=== PATIENT | female | born 1980 | race Caucasian/White ===

== ENCOUNTER 2018-03-17 13:07 | Inpatient (IN) | payer BC, OTHER ==
[~2018-03-17] VITALS: Ht 162.6 cm; Wt 105.2 kg
[2018-03-17 13:52] LABS: BASOPHILS # (AUTO) 0.03 x10^3/uL (0-0.1); BASOPHILS % (AUTO) 1 % (0-1); EOSINOPHILS # (AUTO) 0.16 x10^3/uL (0-0.4); EOSINOPHILS % (AUTO) 3 % (1-7); LYMPHOCYTES # (AUTO) 1.96 x10^3/uL (1-3.4); LYMPHOCYTES % (AUTO) 32 % (22-44); MD NO; MEAN CORPUSCULAR HEMOGLOBIN 33.5 pg (27.0-34.8); MEAN CORPUSCULAR HGB CONC 34.6 g/dL (32.4-35.8); MEAN CORPUSCULAR VOLUME 97.1 fL (80-100); MEAN PLATELET VOLUME 6.8 fL (7.4-10.4); MONOCYTES # (AUTO) 0.48 x10^3/uL (0.2-0.8); MONOCYTES % (AUTO) 8 % (2-9); NEUTROPHILS # (AUTO) 3.44 x10^3/uL (1.8-6.8); NEUTROPHILS % (AUTO) 57 % (42-75); PLATELET COUNT 318 x10^3/uL (130-400); RED BLOOD COUNT 4.18 x10^6/uL (3.82-5.3); RED CELL DISTRIBUTION WIDTH 12.3 % (9.6-15.2)
[2018-03-17 13:58] LABS: ALANINE AMINOTRANSFERASE 36 U/L (12-78); ALBUMIN 4.2 g/dL (3.4-5.0); ANION GAP 8 mmol/L (5-15); CALCIUM 8.5 mg/dL (8.5-10.1); CHLORIDE 106 mmol/L (98-107); CREATININE 0.97 mg/dL (0.55-1.02)
[2018-03-17] MEDS ORDERED: SODIUM CHLORIDE FLUSH 10ML SYR IVF ONE (14:00)
[2018-03-17] MEDS ORDERED: PROMETHAZINE 25 MG/ML, 1ML IM ONE (14:00)
[2018-03-17] MEDS ORDERED: SODIUM CHLORIDE 0.9% 1,000ML IVBOLUS ONE (14:00)
[2018-03-17] MEDS ORDERED: KETOROLAC 30 MG/1 ML IVPush ONE (14:00)
[2018-03-17] MEDS ORDERED: PROMETHAZINE 25 MG/ML, 1ML ONE (14:01)
[2018-03-17] MEDS ORDERED: KETOROLAC 30 MG/1 ML ONE (14:01)
[2018-03-17 14:02] LABS: ALKALINE PHOSPHATASE 51 U/L (45-117); BILIRUBIN,TOTAL 0.5 mg/dL (0.2-1.0); TOTAL PROTEIN 8.1 g/dL (6.4-8.2)
[2018-03-17] MEDS ORDERED: MORPHINE SULFATE 4 MG/ML, 1ML ONE ×2 (14:02→15:50)
[2018-03-17] MEDS: MORPHINE SULFATE 4 MG/ML, 1ML IVPush PRN ×2 (14:06→16:01)
[2018-03-17] MEDS ORDERED: PANTOPRAZOLE 40 MG IV ONE (15:50)
[2018-03-17] MEDS ORDERED: PANTOPRAZOLE 40 MG IV IVPush SCH (16:00)
[2018-03-17] MEDS ORDERED: OMNIPAQUE 350 MG/ML, 100ML BOTTLE ONE (16:33)
[2018-03-17 16:38] LABS: CULTURE INDICATED? YES; MICROSCOPIC INDICATED
[2018-03-17] MEDS ORDERED: ZOLP10TA PO (17:39)
[2018-03-17] MEDS ORDERED: LEVO125T5 PO (17:39)
[2018-03-17] MEDS ORDERED: BISACODYL 10 MG SUPP PR PRN (18:30)
[2018-03-17] MEDS ORDERED: ONDANSETRON 2MG/ML, 2ML IVPush PRN (18:30)
[2018-03-17] MEDS ORDERED: POLYETHYLENE GLYCOL 17 GM PACKET PO PRN (18:30)
[2018-03-17] MEDS: CEFTRIAXONE 1,000 MG in SODIUM CHLORIDE 0.9% 50 ML IV SCH (20:29)
[2018-03-17 20:38] VITALS: BP 132/91
[2018-03-17] MEDS: ZOLPIDEM 10MG TABLET PO PRN (21:12)
[2018-03-18 00:09] VITALS: BP 116/78
[2018-03-18 04:02] VITALS: BP 112/67
[2018-03-18 05:03] LABS: BASOPHILS # (AUTO) 0.05 x10^3/uL (0-0.1); BASOPHILS % (AUTO) 1 % (0-1); EOSINOPHILS # (AUTO) 0.21 x10^3/uL (0-0.4); EOSINOPHILS % (AUTO) 3 % (1-7); LYMPHOCYTES # (AUTO) 2.33 x10^3/uL (1-3.4); LYMPHOCYTES % (AUTO) 34 % (22-44); MD NO; MEAN CORPUSCULAR HEMOGLOBIN 33.8 pg (27.0-34.8); MEAN CORPUSCULAR HGB CONC 34.7 g/dL (32.4-35.8); MEAN CORPUSCULAR VOLUME 97.4 fL (80-100); MEAN PLATELET VOLUME 6.6 fL (7.4-10.4); MONOCYTES # (AUTO) 0.64 x10^3/uL (0.2-0.8); MONOCYTES % (AUTO) 9 % (2-9); NEUTROPHILS # (AUTO) 3.67 x10^3/uL (1.8-6.8); NEUTROPHILS % (AUTO) 53 % (42-75); PLATELET COUNT 294 x10^3/uL (130-400); RED BLOOD COUNT 3.95 x10^6/uL (3.82-5.3); RED CELL DISTRIBUTION WIDTH 13.1 % (9.6-15.2)
[2018-03-18 05:13] LABS: ALBUMIN 3.8 g/dL (3.4-5.0); ANION GAP 7 mmol/L (5-15); CALCIUM 8.8 mg/dL (8.5-10.1); CHLORIDE 107 mmol/L (98-107)
[2018-03-18 05:17] LABS: ALANINE AMINOTRANSFERASE 32 U/L (12-78); ALKALINE PHOSPHATASE 47 U/L (45-117); BILIRUBIN,TOTAL 0.6 mg/dL (0.2-1.0); CREATININE 1.16 mg/dL (0.55-1.02); TOTAL PROTEIN 7.1 g/dL (6.4-8.2)
[2018-03-18 07:21] VITALS: BP 112/77
[2018-03-18] MEDS: SENNA/DOCUSATE TABLET PO SCH (08:12)
[2018-03-18] MEDS: LEVOTHYROXINE 125 MCG TABLET PO SCH (08:13)
[2018-03-18] MEDS: ACETAMINOPHEN 325 MG TABLET PO PRN (09:57)
[2018-03-18 12:31] VITALS: BP 116/81
[2018-03-18] MEDS ORDERED: MAALOX/HYOSCYAMINE/LIDOCAINE 45 ML BTL PO ONE (13:00)
[2018-03-18] MEDS ORDERED: MAALOX/HYOSCYAMINE/LIDOCAINE 45 ML BTL PO PRN (13:00)
[2018-03-18] MEDS: PANTOPRAZOLE 40 MG IV IVPush SCH (14:02)
[2018-03-18] MEDS: SODIUM CHLORIDE 0.9% 1,000 ML IV SCH (14:02)
[2018-03-18] MEDS: HYDROcodone/APAP 5/325 TABLET PO PRN ×2 (14:59→22:11)
[2018-03-18] MEDS: CEFTRIAXONE 1,000 MG in SODIUM CHLORIDE 0.9% 50 ML IV SCH (18:38)
[2018-03-18 20:00] VITALS: BP 113/78
[2018-03-18] MEDS: ZOLPIDEM 10MG TABLET PO PRN (22:11)
[2018-03-19] MEDS: PANTOPRAZOLE 40 MG IV IVPush SCH ×3 (00:27→21:38)
[2018-03-19 02:00] VITALS: BP 127/82
[2018-03-19] MEDS: HYDROcodone/APAP 5/325 TABLET PO PRN ×4 (04:02→21:37)
[2018-03-19] MEDS: SODIUM CHLORIDE 0.9% 1,000 ML IV SCH ×3 (04:03→23:43)
[2018-03-19 05:55] LABS: BASOPHILS # (AUTO) 0.04 x10^3/uL (0-0.1); BASOPHILS % (AUTO) 1 % (0-1); EOSINOPHILS # (AUTO) 0.16 x10^3/uL (0-0.4); EOSINOPHILS % (AUTO) 3 % (1-7); LYMPHOCYTES # (AUTO) 2.27 x10^3/uL (1-3.4); LYMPHOCYTES % (AUTO) 41 % (22-44); MD NO; MEAN CORPUSCULAR HEMOGLOBIN 33.4 pg (27.0-34.8); MEAN CORPUSCULAR HGB CONC 34.6 g/dL (32.4-35.8); MEAN CORPUSCULAR VOLUME 96.5 fL (80-100); MEAN PLATELET VOLUME 6.6 fL (7.4-10.4); MONOCYTES # (AUTO) 0.51 x10^3/uL (0.2-0.8); MONOCYTES % (AUTO) 9 % (2-9); NEUTROPHILS # (AUTO) 2.51 x10^3/uL (1.8-6.8); NEUTROPHILS % (AUTO) 46 % (42-75); PLATELET COUNT 313 x10^3/uL (130-400); RED CELL DISTRIBUTION WIDTH 12.6 % (9.6-15.2)
[2018-03-19 06:08] LABS: CHLORIDE 107 mmol/L (98-107)
[2018-03-19 06:17] LABS: ALANINE AMINOTRANSFERASE 32 U/L (12-78); ALBUMIN 3.8 g/dL (3.4-5.0); ALKALINE PHOSPHATASE 46 U/L (45-117); ANION GAP 10 mmol/L (5-15); BILIRUBIN,TOTAL 0.5 mg/dL (0.2-1.0); CALCIUM 8.7 mg/dL (8.5-10.1); CREATININE 0.98 mg/dL (0.55-1.02); TOTAL PROTEIN 7.2 g/dL (6.4-8.2)
[2018-03-19 08:18] VITALS: BP 119/75
[2018-03-19] MEDS: SENNA/DOCUSATE TABLET PO SCH (09:29)
[2018-03-19] MEDS: LEVOTHYROXINE 125 MCG TABLET PO SCH (09:29)
[2018-03-19 13:02] VITALS: BP 132/88
[2018-03-19 15:36] LABS: OCCULT BLOOD NEGATIVE (NEGATIVE)
[2018-03-19] MEDS ORDERED: MORPHINE SULFATE 4 MG/ML, 1ML IVPush ONE (17:30)
[2018-03-19] MEDS: CEFTRIAXONE 1,000 MG in SODIUM CHLORIDE 0.9% 50 ML IV SCH (17:33)
[2018-03-19 20:04] VITALS: BP 126/42
[2018-03-19] MEDS: ZOLPIDEM 10MG TABLET PO PRN (21:38)
[2018-03-20 02:27] VITALS: BP 132/52
[2018-03-20 08:30] VITALS: BP 104/69
[2018-03-20] MEDS: SENNA/DOCUSATE TABLET PO SCH (09:00)
[2018-03-20] MEDS: LEVOTHYROXINE 100 MCG INJ IVPush SCH (09:43)
[2018-03-20] MEDS: PANTOPRAZOLE 40 MG IV IVPush SCH ×2 (09:43→21:46)
[2018-03-20] MEDS: SODIUM CHLORIDE 0.9% 1,000 ML IV SCH ×2 (09:43→21:45)
[2018-03-20] MEDS ORDERED: PROPOFOL 10 MG/ML, 20ML ONE (11:11)
[2018-03-20] MEDS ORDERED: OXYcodone 5 MG/5 ML ORAL.SOL UDC ONE ×2 (11:35→11:40)
[2018-03-20] MEDS ORDERED: FENTANYL PF 100 MCG/2ML ONE (11:35)
[2018-03-20] MEDS ORDERED: ACETAMINOPHEN 650 MG/20.3 ML UDC ONE (11:35)
[2018-03-20] MEDS: ACETAMINOPHEN 325 MG TABLET PO PRN (11:43)
[2018-03-20] MEDS ORDERED: FENTANYL PF 100 MCG/2ML IV PRN (12:00)
[2018-03-20] MEDS ORDERED: OXYcodone 5 MG/5 ML ORAL.SOL UDC PO PRN (12:00)
[2018-03-20] MEDS ORDERED: hydrALAzine 20 MG/ML, 1ML IV PRN (12:00)
[2018-03-20] MEDS ORDERED: ACETAMINOPHEN 325 MG TABLET PO PRN (12:00)
[2018-03-20] MEDS ORDERED: ONDANSETRON 2MG/ML, 2ML IV PRN (12:00)
[2018-03-20] MEDS ORDERED: LABETALOL 5MG/ML, 20ML IV PRN (12:00)
[2018-03-20 14:30] VITALS: BP 118/86
[2018-03-20] MEDS: HYDROcodone/APAP 5/325 TABLET PO PRN (18:06)
[2018-03-20 18:54] VITALS: BP 119/80
[2018-03-20] MEDS: ZOLPIDEM 10MG TABLET PO PRN (21:46)
[2018-03-20] MEDS: NORTRIPTYLINE 25 MG CAPSULE PO SCH (21:46)
[2018-03-21 00:39] VITALS: BP 117/78
[2018-03-21] MEDS: HYDROcodone/APAP 5/325 TABLET PO PRN ×3 (01:21→17:18)
[2018-03-21] MEDS ORDERED: MELATONIN 3 MG TABLET PO ONE (01:30)
[2018-03-21] MEDS: LEVOTHYROXINE 100 MCG INJ IVPush SCH (06:22)
[2018-03-21 08:30] VITALS: BP 121/88
[2018-03-21] MEDS: PANTOPRAZOLE 40 MG IV IVPush SCH ×2 (08:34→20:28)
[2018-03-21] MEDS: SENNA/DOCUSATE TABLET PO SCH (08:35)
[2018-03-21 13:33] LABS: OCCULT BLOOD NEGATIVE (NEGATIVE)
[2018-03-21 14:30] VITALS: BP 111/79
[2018-03-21 20:25] VITALS: BP 106/59
[2018-03-21] MEDS: NORTRIPTYLINE 25 MG CAPSULE PO SCH (20:28)
[2018-03-21] MEDS: ZOLPIDEM 10MG TABLET PO PRN (20:36)
[2018-03-22 04:39] VITALS: BP 119/83
[2018-03-22] MEDS ORDERED: LEVOTHYROXINE 100 MCG INJ IVPush SCH (06:00)
[2018-03-22] MEDS: PANTOPRAZOLE 40 MG IV IVPush SCH (07:42)
[2018-03-22] MEDS: SENNA/DOCUSATE TABLET PO SCH (07:42)
[2018-03-22 08:08] VITALS: BP 128/86
[2018-03-22] MEDS ORDERED: NORT25CA PO (09:09)
[2018-03-22] MEDS ORDERED: LEVO175T2 PO (09:09)
[2018-03-22 10:49] VITALS: BP 135/91
[2018-03-23] MEDS ORDERED: LEVOTHYROXINE 175 MCG TABLET PO SCH (06:00)
== END 2018-03-22 12:43 | disposition home or self-care (01) | DRG 690 ==
LOC: ED 15:11 → EDIP 17:22 → 4NOR 18:42
PROVIDERS: ADMIT Family Medicine; ATTEND Family Medicine
PROC: 0DB68ZX Excision of Stomach, Via Natural or Artificial Opening Endoscopic, Diagnostic (ICD-10-PCS; principal; 2018-03-20 11:00)
DX: N39.0 Urinary tract infection, site not specified (principal); K29.60 Other gastritis without bleeding; K44.9 Diaphragmatic hernia without obstruction or gangrene; K76.0 Fatty (change of) liver, not elsewhere classified; F41.9 Anxiety disorder, unspecified; G47.00 Insomnia, unspecified; F12.90 Cannabis use, unspecified, uncomplicated; E73.9 Lactose intolerance, unspecified; E66.9 Obesity, unspecified; E28.2 Polycystic ovarian syndrome; E03.9 Hypothyroidism, unspecified; B96.20 Unspecified Escherichia coli [E. coli] as the cause of diseases classified elsewhere; Z82.49 Family history of ischemic heart disease and other diseases of the circulatory system; Z90.710 Acquired absence of both cervix and uterus; Z82.5 Family history of asthma and other chronic lower respiratory diseases; Z90.721 Acquired absence of ovaries, unilateral; Z90.49 Acquired absence of other specified parts of digestive tract; Z79.899 Other long term (current) drug therapy; Z88.8 Allergy status to other drugs, medicaments and biological substances; Z68.39 Body mass index [BMI] 39.0-39.9, adult
CPT/HCPCS: 36415; 74174; 76700; 80053; 81001; 82272; 83690; 84443; 84703; 85025; 86677; 87077; 87086; 87186; 88305; 96361; 96372; 96374; 96375; 96376; 99285; J0696; J1885; J2550; J2704; J3010; Q9967; C9113; J7030

== ENCOUNTER 2018-11-17 16:06 | Emergency (ER) | payer OTHER ==
[~2018-11-17] VITALS: Ht 162.6 cm; Wt 105.0 kg
[~2018-11-17 16:06] MED LIST: LEVO125T5 PO; LEVO175T2 PO; NORT25CA78 PO; ZOLP10TA PO
[2018-11-17] MEDS ORDERED: MORPHINE SULFATE 4 MG/ML, 1ML IVPush PRN (17:00)
[2018-11-17] MEDS ORDERED: SODIUM CHLORIDE 0.9% 1,000ML IVBOLUS ONE (17:00)
[2018-11-17] MEDS ORDERED: ONDANSETRON 2MG/ML, 2ML IVPush ONE (17:00)
[2018-11-17 17:09] LABS: MICROSCOPIC NOT IND
[2018-11-17 17:10] LABS: CULTURE INDICATED? NO
[2018-11-17 17:13] VITALS: BP 103/74
[2018-11-17 17:20] LABS: BASOPHILS % (AUTO) 0 % (0-1); EOSINOPHILS # (AUTO) 0.01 x10^3/uL (0-0.4); EOSINOPHILS % (AUTO) 0 % (1-7); LYMPHOCYTES # (AUTO) 0.55 x10^3/uL (1-3.4); LYMPHOCYTES % (AUTO) 5 % (22-44); MD NO; MEAN CORPUSCULAR HEMOGLOBIN 33.4 pg (27.0-34.8); MEAN CORPUSCULAR HGB CONC 34.8 g/dL (32.4-35.8); MEAN CORPUSCULAR VOLUME 96.1 fL (80-100); MEAN PLATELET VOLUME 7.1 fL (7.4-10.4); MONOCYTES # (AUTO) 0.38 x10^3/uL (0.2-0.8); MONOCYTES % (AUTO) 3 % (2-9); NEUTROPHILS # (AUTO) 11.28 x10^3/uL (1.8-6.8); NEUTROPHILS % (AUTO) 92 % (42-75); PLATELET COUNT 337 x10^3/uL (130-400); RED BLOOD COUNT 4.59 x10^6/uL (3.82-5.3); RED CELL DISTRIBUTION WIDTH 12.7 % (9.6-15.2)
[2018-11-17 17:28] LABS: ALANINE AMINOTRANSFERASE 52 U/L (12-78); ALBUMIN 4.4 g/dL (3.4-5.0); ANION GAP 9 mmol/L (5-15); CALCIUM 9.4 mg/dL (8.5-10.1); CHLORIDE 102 mmol/L (98-107); CREATININE 1.12 mg/dL (0.55-1.02)
[2018-11-17 17:30] LABS: ALKALINE PHOSPHATASE 65 U/L (45-117); BILIRUBIN,TOTAL 0.9 mg/dL (0.2-1.0); TOTAL PROTEIN 8.1 g/dL (6.4-8.2)
[2018-11-17] MEDS ORDERED: ONDANSETRON 2MG/ML, 2ML ONE (17:34)
[2018-11-17] MEDS ORDERED: MORPHINE SULFATE 4 MG/ML, 1ML ONE (17:35)
[2018-11-17 18:41] LABS: HCG UR SG 1.022 (1.003-1.030)
[2018-11-17] MEDS ORDERED: MAALOX/HYOSCYAMINE/LIDOCAINE 45 ML BTL ONE (18:49)
--- NOTE | 2018-11-17 18:54 | NUR ---
SAMANTA (RN) IS ASSUMING CARE OF THIS PT AT THIS TIME. SBAR REPORT WAS EXCHANGED AT THE BEDSIDE.
--- NOTE | 2018-11-17 18:58 | NUR ---
ASSUMED CRE FOR THIS PT AND PT MEDICATED ORDERED AND AWAITING ERP RECHECK
[2018-11-17] MEDS ORDERED: MAALOX/HYOSCYAMINE/LIDOCAINE 45 ML BTL PO ONE (19:00)
== END 2018-11-17 19:33 | disposition home or self-care (01) ==
LOC: ED 19:27
DX: K52.9 Noninfective gastroenteritis and colitis, unspecified (principal); K29.00 Acute gastritis without bleeding; E03.9 Hypothyroidism, unspecified
CPT/HCPCS: 36415; 76700; 80053; 81003; 81025; 83690; 85025; 93005; 96361; 96374; 96375; 99284; J2405; J7030